=== PATIENT | female | born 1990 | race Caucasian/White ===

== ENCOUNTER 2018-10-27 14:44 | Emergency (ER) | payer OTHER ==
[~2018-10-27] VITALS: Ht 172.7 cm; Wt 59.1 kg
[2018-10-27 14:50] VITALS: Ht 172.7 cm; Wt 59.1 kg
[2018-10-27] MEDS ORDERED: KETOROLAC 60 MG INJ IM STA (15:33)
[2018-10-27] MEDS ORDERED: HYDROCODONE/APAP (5/325) TAB PO ONE (16:00)
[2018-10-27] MEDS ORDERED: DEXAMETHASONE 10 MG/ML 1 ML INJ IV ONE (16:00)
[2018-10-27] MEDS ORDERED: CYCLOBENZAPRINE 10 MG TAB PO ONE (16:00)
[2018-10-27] MEDS ORDERED: TRAM50TA2 PO (17:17)
[2018-10-27] MEDS ORDERED: CYCL10TA7 PO (17:17)
[2018-10-27] MEDS ORDERED: IBUP800T48 PO (17:17)
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
[2018-10-27 18:52] VITALS: BP 118/59; PULSE 55; RESP 16
== END 2018-10-27 18:53 | disposition home or self-care (01) ==
LOC: FTE 14:44
DX: S62.174A Nondisplaced fracture of trapezium [larger multangular], right wrist, initial encounter for closed fracture (principal); S13.9XXA Sprain of joints and ligaments of unspecified parts of neck, initial encounter; S20.212A Contusion of left front wall of thorax, initial encounter; M62.838 Other muscle spasm; V43.52XA Car driver injured in collision with other type car in traffic accident, initial encounter
CPT/HCPCS: 29125; 72125; 73110; 81003; 81025; 96372; 96374; 99285; J1100; J1885